=== PATIENT | female | born 1985 | race Caucasian/White ===

== ENCOUNTER → 2017-03-24 | Outpatient (CLI) | payer OTHER ==
[~2017-03-24] MED LIST: ACET50TA PO; IBUP-1114 PO
[2017-03-24 18:27] LABS: BASO % 0.3 % (0.0-1.0); EOS # 0.1 K/mm3 (0.0-0.50); EOS % 1.2 % (0.0-3.0); LARGE UNSTAINED CELL # 0.1 K/mm3 (0.0-0.4); LARGE UNSTAINED CELL % 1.3 % (0.0-4.0); LYMPH # 1.7 K/mm3 (1.5-4.5); MEAN CORPUSCULAR HEMOGLOBIN 32.1 pg (27.0-33.0); MEAN CORPUSCULAR HGB CONC 33.4 g/dl (32.0-36.5); MEAN CORPUSCULAR VOLUME 96.2 fl (80.0-96.0); MONO # 0.4 K/mm3 (0.0-0.8); MONO % 4.5 % (0.0-5.0); NEUTROPHILS # 6.6 K/mm3 (1.8-7.7); NEUTROPHILS % 73.7 % (36.0-66.0); PLATELET COUNT, AUTOMATED 293 k/mm3 (150-450); RED CELL DISTRIBUTION WIDTH 12.4 % (11.5-14.5)
[2017-03-24 18:49] LABS: HBsAg Prenatal NEGATIVE (NEGATIVE)
== END ==
LOC: M SMT 13:01
PROVIDERS: ATTEND Advanced Practice Midwife
DX: Z34.81 Encounter for supervision of other normal pregnancy, first trimester (principal)

== ENCOUNTER → 2017-04-11 | Outpatient (CLI) | payer OTHER ==
[2017-04-11 18:03] LABS: ALT/SGPT 18 U/L (12-78); AST/SGOT 15 U/L (15-37); BILIRUBIN,TOTAL 0.3 MG/DL (0.2-1.0); GLOMERULAR FILTRATION RATE > 60.0 (>60); URIC ACID 2.9 MG/DL (2.6-6.0)
== END ==
LOC: M SMT 11:17
PROVIDERS: ATTEND Advanced Practice Midwife
DX: O13.3 Gestational [pregnancy-induced] hypertension without significant proteinuria, third trimester (principal); Z3A.00 Weeks of gestation of pregnancy not specified

== ENCOUNTER → 2017-06-07 | Outpatient (CLI) | payer OTHER ==
--- NOTE | 2017-06-07 15:01 | REP ---
OB ULTRASOUND: Real-time sonographic evaluation of the gravid uterus is performed. There is a single living intrauterine gestation. Estimated gestational age 19 weeks 1 day with EDC 10/31/2017. Today's measurements indicate appropriate growth. BPD 44 mm = 19 weeks 2 days, 55th percentile HC 164 mm = 19 weeks 1 day, 52nd percentile AC 139 mm = 19 weeks 2 days, 55th percentile Femur length 30 mm = 19 weeks 3 days, 57th percentile HC/AC ratio 1.18 within normal range. Estimated weight 287 grams, 56th percentile. Cervix is closed and measures 4.3 cm in length. heart rate 153 beats per minute. SEEN/GROSSLY UNREMARKABLE Lateral ventricles Yes Posterior fossa Yes Upper lip Yes Four-chamber heart Yes LVOT Yes RVOT Yes Stomach Yes Cord insertion Yes Three vessel cord Yes Kidneys Yes Bladder Yes Spine Yes position: Transverse with head toward the maternal left side. Placenta: Anterior and grade 0 with no previa or abruption. Amniotic fluid: Within normal limits.
== END ==
LOC: M WHC 12:58
PROVIDERS: ATTEND Obstetrics & Gynecology
DX: Z36 Encounter for antenatal screening of mother (principal); Z3A.19 19 weeks gestation of pregnancy

== ENCOUNTER → 2017-07-31 | Outpatient (CLI) | payer OTHER ==
--- NOTE | 2017-07-31 11:36 | REP ---
Left lower extremity Duplex Doppler venous ultrasound: Real time compression and duplex Doppler interrogation of the left lower extremity deep venous system is performed. The left common femoral, superficial femoral and popliteal veins are fully compressible with transducer pressure and demonstrate normal spontaneous and phasic flow, without evidence of deep venous thrombosis. Impression: No evidence of deep venous thrombosis of the left lower extremity femoral popliteal venous system. Signed by Azael Ortiz MD 07/31/2017 11:28 A
== END ==
LOC: M RAD 10:26
PROVIDERS: ATTEND Advanced Practice Midwife
DX: M79.605 Pain in left leg (principal)

== ENCOUNTER → 2017-08-09 | Outpatient (CLI) | payer OTHER ==
[2017-08-09 13:30] LABS: BASO % 0.3 % (0.0-1.0); EOS # 0.1 10^3/uL (0.0-0.50); EOS % 0.8 % (0.0-3.0); IMMATURE GRANULOCYTE % 0.5 % (0-0); LYMPH # 1.2 10^3/uL (1.5-4.5); LYMPH % 15.7 % (24.0-44.0); MEAN CORPUSCULAR HEMOGLOBIN 33.2 pg (27.0-33.0); MEAN CORPUSCULAR HGB CONC 33.5 g/dl (32.0-36.5); MEAN CORPUSCULAR VOLUME 99.1 fl (80.0-96.0); MONO # 0.5 10^3/uL (0.0-0.8); MONO % 5.8 % (0.0-5.0); NEUTROPHILS # 6.1 10^3/uL (1.8-7.7); NEUTROPHILS % 76.9 % (36.0-66.0); PLATELET COUNT, AUTOMATED 232 10^3/uL (150-450); RED CELL DISTRIBUTION WIDTH 12.7 % (11.5-14.5); WHITE BLOOD COUNT 7.9 10^3/uL (4.0-10.0)
== END ==
LOC: M SMT 09:24
PROVIDERS: ATTEND Advanced Practice Midwife
DX: Z36.89 Encounter for other specified antenatal screening (principal); Z3A.00 Weeks of gestation of pregnancy not specified

== ENCOUNTER → 2017-08-21 | Outpatient (CLI) | payer OTHER | LOC: M LAB 08:05 | PROVIDERS: ATTEND Advanced Practice Midwife | DX: Z34.83 Encounter for supervision of other normal pregnancy, third trimester (principal) ==

== ENCOUNTER → 2017-10-04 | Outpatient (REF) | payer OTHER | LOC: M LAB REF 17:14 | DX: Z34.83 Encounter for supervision of other normal pregnancy, third trimester (principal) ==

== ENCOUNTER 2017-10-18 01:44 | Inpatient (IN) | payer OTHER ==
[2017-10-18 02:45] LABS: HEMATOCRIT 35.7 % (36.0-47.0); HEMOGLOBIN 12.2 g/dl (12.0-16.0); MEAN CORPUSCULAR HEMOGLOBIN 32.1 pg (27.0-33.0); MEAN CORPUSCULAR HGB CONC 34.2 g/dl (32.0-36.5); MEAN CORPUSCULAR VOLUME 93.9 fl (80.0-96.0); PLATELET COUNT, AUTOMATED 218 10^3/uL (150-450); RED CELL DISTRIBUTION WIDTH 12.6 % (11.5-14.5); WHITE BLOOD COUNT 11.6 10^3/uL (4.0-10.0)
[2017-10-18 03:06] LABS: AMPHETAMINES URINE REFLEX NEGATIVE (NEGATIVE); BARBITURATES URINE REFLEX NEGATIVE (NEGATIVE); BENZODIAZEPINES URINE REFLEX NEGATIVE (NEGATIVE); CANNABINOIDS URINE REFLEX NEGATIVE (NEGATIVE); COCAINE METABOLITE URINE REFLE NEGATIVE (NEGATIVE); METHADONE URINE REFLEX NEGATIVE (NEGATIVE); OPIATES URINE REFLEX NEGATIVE (NEGATIVE); PHENCYCLIDINE URINE REFLEX NEGATIVE (NEGATIVE)
[2017-10-18] MEDS ORDERED: FENTANYL 2MCG/ML ROPIVACAINE 0.2% IN 0.9% NACL 200ML IVBAG As Ordered (15:36)
[2017-10-18] MEDS: OXYTOCIN DRIP 30 UNITS in APPROPRIATE DILUENT 1 EA IV (18:19)
[2017-10-18] MEDS ORDERED: EPIDURAL/PCA KEYS XX (19:00)
[2017-10-18] MEDS ORDERED: NALOXONE INJ 0.4 MG/1 ML VIAL (J2310) IV (19:00)
[2017-10-18] MEDS ORDERED: diphenhydrAMINE INJ 50MG/ML VIAL (J1200) IV (19:00)
[2017-10-18] MEDS ORDERED: REFRIGERATOR IV KEYS XX (19:00)
[2017-10-18] MEDS ORDERED: EPIDURAL COMMENT XX (19:00)
[2017-10-18] MEDS ORDERED: FENTANYL/ROPIVACAINE/NACL BAG 200 ML EPIDURAL (19:00)
[2017-10-18] MEDS ORDERED: ePHEDrine INJ 50 MG/ML VIAL IV (19:00)
[2017-10-18] MEDS ORDERED: ONDANSETRON 4MG/2ML VIAL (J2405) IV ×2 (19:00→22:15)
[2017-10-18] MEDS ORDERED: LACTATED RINGER'S 1000 ML IV (19:00)
[2017-10-18] MEDS ORDERED: DIBUCAINE 1% OINTMENT 30GM TOP (22:15)
[2017-10-18] MEDS ORDERED: METHYLERGONOVINE MALEATE 0.2 MG TAB PO (22:15)
[2017-10-19] MEDS: OXYTOCIN DRIP 30 UNITS in APPROPRIATE DILUENT 1 EA IV (00:40)
[2017-10-19] MEDS: DOCUSATE SODIUM 100 MG CAP PO (00:50)
[2017-10-19] MEDS: IBUPROFEN 800 MG TAB PO ×3 (00:50→19:43)
[2017-10-19] MEDS: RHOGAM 300 MCG (1500 IU) INJ (J2790) IM (01:54)
[2017-10-19] MEDS: MEASLES,MUMPS,RUBELLA VACCINE INJ (MMR-II) (90707) SC (01:55)
[2017-10-19] MEDS: ACETAMINOPHEN 500 MG TAB PO (05:55)
[2017-10-19] MEDS: PRENATAL VITAMINS CHEWABLE TABLET PO (09:33)
[2017-10-20] MEDS: DOCUSATE SODIUM 100 MG CAP PO (06:34)
[2017-10-20] MEDS: IBUPROFEN 800 MG TAB PO (06:35)
[2017-10-20] MEDS: PRENATAL VITAMINS CHEWABLE TABLET PO (07:30)
== END 2017-10-20 09:50 | disposition home or self-care (01) | DRG 775 ==
LOC: M LDO 01:44 → M OBS 10-19 02:15 → M LDI 02:19
PROVIDERS: Advanced Practice Midwife
PROC: 10E0XZZ Delivery of Products of Conception, External Approach (ICD-10-PCS; principal; 2017-10-18)
PROC: 0KQM0ZZ Repair Perineum Muscle, Open Approach (ICD-10-PCS; 2017-10-18)
DX: O70.1 Second degree perineal laceration during delivery (principal); Z37.0 Single live birth; Z3A.37 37 weeks gestation of pregnancy; Z88.2 Allergy status to sulfonamides; O69.82X0 Labor and delivery complicated by other cord entanglement, without compression, not applicable or unspecified

== ENCOUNTER → 2019-07-02 | Outpatient (REF) | payer OTHER ==
[~2019-07-02] MED LIST changes: -ACET50TA PO; +ASPI81CH48 PO; +COLA100C5 PO; +MAPA500T2 PO; +PRENTAB PO
== END ==
LOC: M LAB REF 12:56
PROVIDERS: ATTEND Advanced Practice Midwife
DX: Z12.4 Encounter for screening for malignant neoplasm of cervix (principal)
CPT/HCPCS: 87624; G0123

== ENCOUNTER → 2019-07-06 | Outpatient (CLI) | payer OTHER | LOC: M LAB 11:16 | PROVIDERS: ATTEND Advanced Practice Midwife | DX: N92.6 Irregular menstruation, unspecified (principal) ==

== ENCOUNTER → 2022-01-11 | Outpatient (CLI) | payer OTHER | LOC: M WHC 15:34 | PROVIDERS: ATTEND Advanced Practice Midwife | DX: Z12.31 Encounter for screening mammogram for malignant neoplasm of breast (principal); Z80.3 Family history of malignant neoplasm of breast ==

== ENCOUNTER → 2022-01-11 | Outpatient (REF) | payer OTHER | LOC: M PLALAB 14:02 | PROVIDERS: ATTEND Advanced Practice Midwife | DX: Z12.4 Encounter for screening for malignant neoplasm of cervix (principal) | CPT/HCPCS: 87624; G0123 ==

== ENCOUNTER → 2023-10-30 | Outpatient (REF) | payer OTHER | LOC: M SFHCDERM 13:55 | PROVIDERS: ATTEND Physician Assistant | DX: L82.1 Other seborrheic keratosis (principal) ==

== ENCOUNTER → 2024-01-16 | Outpatient (REF) | payer OTHER | LOC: M PLALAB 12:44 | PROVIDERS: ATTEND Advanced Practice Midwife | DX: Z12.4 Encounter for screening for malignant neoplasm of cervix (principal); Z53.9 Procedure and treatment not carried out, unspecified reason ==

== ENCOUNTER → 2025-05-21 | Outpatient (REF) | payer OTHER | LOC: M LAB REF 14:37 | PROVIDERS: ATTEND Physician Assistant | DX: R30.0 Dysuria (principal) ==